=== PATIENT | female | born 1960 | race Caucasian/White ===

== ENCOUNTER 2017-05-16 10:34 | Emergency (ER) | payer OTHER ==
[2017-05-16] MEDS ORDERED: METHYLPREDNISOLONE INJ 125 MG/2 ML SDV IV ONE (10:49)
[2017-05-16] MEDS ORDERED: IPRATROPIUM/ALBUTEROL 0.5-2.5 MG/3 ML AMPUL NEB ONE (10:49)
[2017-05-16] MEDS ORDERED: OXYMETAZOLINE HCL 0.05% NASAL SPRAY 15 ML BOTTLE NASL ONE (10:52)
[2017-05-16] MEDS ORDERED: OXYMETAZOLINE HCL 0.05% NASAL SPRAY 15 ML BOTTLE ONE (10:54)
[2017-05-16] MEDS ORDERED: PROPOFOL INJ 200 MG/20 ML VIAL IV ONE ×2 (11:04→11:25)
[2017-05-16 11:05] LABS: PROTHROMBIN TIME 16.3 SEC (11.4-15.4)
[2017-05-16 11:16] LABS: VENOUS BLOOD BASE EXCESS -2.3 mmol/L; VENOUS BLOOD HCO3 28.4 mmol/L (20-32)
[2017-05-16 11:17] LABS: HEMATOCRIT 34.8 % (36.0-47.0); HEMOGLOBIN 10.6 g/dL (12.0-15.5); MEAN CORPUSCULAR HEMOGLOBIN 29.2 pg (27.0-33.4); MEAN CORPUSCULAR HGB CONC 30.4 g/dL (32.0-36.0); MEAN CORPUSCULAR VOLUME 96 fl (80-97); RED BLOOD COUNT 3.62 10^6/uL (3.72-5.28); RED CELL DISTRIBUTION WIDTH 14.8 % (11.5-14.0); WHITE BLOOD COUNT 17.1 10^3/uL (4.0-10.5)
[2017-05-16] MEDS ORDERED: NORMAL SALINE 1000 ML 1,000 ML IV ONE ×2 (11:17→11:24)
[2017-05-16 11:29] LABS: ALBUMIN 3.8 g/dL (3.5-5.0); ALKALINE PHOSPHATASE 64 U/L (38-126); BILIRUBIN,DIRECT 0.4 mg/dL (0.0-0.4); BILIRUBIN,TOTAL 1.9 mg/dL (0.2-1.3); BLOOD UREA NITROGEN 34 mg/dL (7-20); CALCIUM 8.9 mg/dL (8.4-10.2); CHLORIDE 94 mmol/L (98-107); CREATINE KINASE 129 U/L (30-135); CREATININE RESULT 2.01 mg/dL (0.52-1.25); GLUCOSE 42 mg/dL (75-110); TOTAL PROTEIN 6.4 g/dL (6.3-8.2)
[2017-05-16 11:32] LABS: NEONATAL BILIRUBIN RESULT 1.9 mg/dL (0.1-1.1)
--- NOTE | 2017-05-16 11:32 | ER Document Report ---
ED Resuscitation - General Mode of Arrival: Medic Information source: Emergency Med Personnel - HPI Witnessed arrest: Yes Bystander CPR?: Yes Onset: Just prior to arrival Symptoms prior to event: Short of breath Activity prior to event: At rest <PRIYANK COLÓN - Last Filed: 05/16/17 14:02> <JOSEE SARABIA - Last Filed: 05/16/17 15:50> - General Chief Complaint: Cardiac Arrest Stated Complaint: POST ARREST Time Seen by Provider: 05/16/17 10:47 Notes: Patient is a 57-year-old female, with history of COPD, presenting to the emergency department after being witnessed by family having cardiac arrest just prior to arrival. Per EMS, family started CPR. EMS arrived on the scene shortly after where she was found to be in asystole. EMS administered epinephrine, pulses returned, she was given a Berry airway. (PRIYANK COLÓN) This 57-year-old female patient with a known past medical history of COPD was brought in by EMS after a witnessed cardiac arrest. There is still no family here and no history other than EMS. According to the EMS history, bystander CPR was started, they arrived shortly later and found the patient in asystole. 1 mg epinephrine IV was given, and the patient had return of complexes and circulation. She was intubated with a Berry airway. On arrival her pulse ox is present. EMS reports that her initial end-tidal CO2 was near 100, and had come down in the 60s. Arrival she is unresponsive, she has some rhonchi and wheezes with bag valve ventilation through the Berry airway. She has palpable femoral pulses and radial pulses. Her toes are somewhat cyanotic and look like chronic vascular disease. Her abdomen is quite distended, tense and resonant. Attempt was made to pass NG tube unsuccessfully, oral gastric attempt was also unsuccessful probably due to the inflated balloon from the Berry airway. Anesthesia was called and came to assist in airway management. She was given propofol, succinylcholine, the Berry airway was removed, patient was suctioned and then intubated with a 7.0 endotracheal tube. After intubation, and orogastric tube was inserted and a few 100 mL's of a brownish thick liquid that was suggestive of bowel obstruction was removed. Chest x-ray showed clear lungs with an endotracheal tube about 5 cm from brant. The endotracheal tube was advanced 2 cm. kuB showed gaseous distention of the intestines, but the gas went throughout the entire bowel. This was felt to be an ileus and not an obstruction. The patient's blood pressure was initially 103, it dropped into the 70s and responded to saline boluses, eventually it drifted down requiring Levophed drip. At this time she is on Levophed drip and has received a total of 3 L of normal saline IV. Antibiotics have also been started for an elevated white blood cell count and elevated lactic acid. I called the spouse and found that he has been in the waiting room. History from him is that the patient is on 2 L oxygen around the clock, increases 4-5 L with activity. This morning she was found gasping for breath with her oxygen off. He put it back on her and she complained of sweating and her feet feeling cold. She does have a diagnosis of Raydauds. He reports she found her again with her oxygen off and put it back on and warned her if he came back home and the O2 was off again. He then left to go to a doctor's appointment. About 10 AM he got a phone call from his daughter that she woke up to find the patient blew and gasping for breath. She went across the street get her sister , when they returned the patient was not breathing and was cold. CPR was started and 911 was called. The spouse also recalled that 2 years ago the patient was on a ventilator for several days due to respiratory failure. The EMS run sheet was located and found that her blood sugar was 94 on scene. The first chemistries came back showing a blood sugar of 42. The ALT in AST were in the 4000+ range. Patient was given 1 amp of D50 W, a repeat blood sugar remained at 42, so a second amp of D50 was ordered. The patient's current medications at home according to the family are nasal oxygen, Roflumilast, Protonix, Micardis, Ambien, Zyrtec, Spiriva, and albuterol. She stopped Advair in the recent past. (JOSEE SARABIA) Past Medical History - General Information source: Relative, Emergency Med Personnel - Social History Smoking Status: Former Smoker - Quit 2007 Lives with: Spouse/Significant other Family History: Reviewed & Not Pertinent Pulmonary Medical History: Reports: Hx Asthma, Hx COPD Past Surgical History: Reports: Hx Hysterectomy <PRIYANK COLÓN - Last Filed: 05/16/17 14:02> <JOSEE SARABIA - Last Filed: 05/16/17 15:50> - Medical History Notes: Hx Raybasiliouds (PRIYANK COLÓN) Review of Systems - Review of Systems -: Yes ROS unobtainable due to patient's medical condition - Patient unresponsive <PRIYANK COLÓN - Last Filed: 05/16/17 14:02> Physical Exam - General General appearance: Unresponsive - HEENT Head: Normocephalic, Atraumatic Eyes: Normal Pupils: PERRL - 2-3mm bilaterally, slightly reactive - Respiratory Respiratory status: Other - Arrived with Berry airway bag valve Breath sounds: Rhonchi - Left, Wheezing - Left - Cardiovascular Rhythm: Regular Heart sounds: Normal auscultation Murmur: No - Abdominal Distension: Distended - Resonant and tense - Back Back: Normal - Extremities General upper extremity: Normal inspection Foot: Other - See skin exam - Skin Skin Temperature: Cool Skin Moisture: Dry Skin Color: Other - blue bilateral lower extremities, positive capillary refill <PRIYANK COLÓN - Last Filed: 05/16/17 14:02> Course - Laboratory Result Diagrams: 05/16/17 10:43 05/16/17 10:43 <PRIYANK COLÓN - Last Filed: 05/16/17 14:02> - Laboratory Result Diagrams: 05/16/17 14:15 05/16/17 14:15 - Diagnostic Test Radiology reviewed: Image reviewed, Reports reviewed - Chest x-ray shows good aeration with endotracheal tube about 5 cm above the brant. kuB shows diffuse gas throughout the intestines. - EKG Interpretation by [facility] EKG shows normal: Sinus rhythm, [place], QRS Complexes, ST-T Waves. abnormal: Intervals - Prolonged QT interval Rate: Normal - 75 Rhythm: NSR When compared to previous EKG there are: Previous EKG unavailable - Consults Dr. Russ Time consulted: 13:40 Consulted provider: other - Will accept at [facility]. <JOSEE SARABIA - Last Filed: 05/16/17 15:50> - Re-evaluation Re-evalutation: 05/16/17 14:45 PROCEEDURE: Patient had had some nose bleeding off and on since the attempt to pass the nasogastric tubes was done. It was initially easily controlled with Afrin nose spray and pinching the nostrils. At this time the bleeding has started back up, so I placed Afrin- soaked cotton balls into each nostril to control the bleeding. 05/16/17 15:48 [facility] air transport is here at this time to take the patient. She was given 1 amp of calcium gluconate, 4 units of regular insulin IV, and 1/2 amp of sodium bicarb IV. (JOSEE SARABIA) - Vital Signs Vital signs: Temp Pulse Resp BP Pulse Ox 94.9 F L 12 97/51 L 100 05/16/17 14:31 05/16/17 14:31 05/16/17 14:31 05/16/17 14:31 - Laboratory Laboratory results interpreted by me: 05/16/17 05/16/17 05/16/17 10:43 10:43 10:43 WBC 17.1 H RBC 3.62 L Hgb 10.6 L Hct 34.8 L MCV MCHC 30.4 L RDW 14.8 H Plt Count Seg Neutrophils % Band Neutrophils % 18 H Lymphocytes % Lymphocytes % (Manual) 6 L Monocytes % Absolute Neutrophils Abs Neuts (Manual) 14.9 H PT 16.3 H Carbonic Acid ABG pH ABG pCO2 ABG pO2 ABG O2 Saturation VBG pH VBG pCO2 Sodium Potassium 6.9 H* Chloride 94 L Carbon Dioxide BUN 34 H Creatinine 2.01 H Est GFR ( Amer) 31 L Est GFR (Non-Af Amer) 25 L Glucose 42 L POC Glucose Lactic Acid Calcium Total Bilirubin 1.9 H Direct Bilirubin Indirect Bilirubin 1.5 H Neonat Total Bilirubin 1.9 H AST 4318 H ALT 4158 H CK-MB (CK-2) Total Protein Albumin Urine Protein Urine Nitrite Urine Urobilinogen Urine Ascorbic Acid 05/16/17 05/16/17 05/16/17 10:43 10:43 10:43 WBC RBC Hgb Hct MCV MCHC RDW Plt Count Seg Neutrophils % Band Neutrophils % Lymphocytes % Lymphocytes % (Manual) Monocytes % Absolute Neutrophils Abs Neuts (Manual) PT Carbonic Acid ABG pH ABG pCO2 ABG pO2 ABG O2 Saturation VBG pH 7.14 L* VBG pCO2 84.7 H* Sodium Potassium Chloride Carbon Dioxide BUN Creatinine Est GFR ( Amer) Est GFR (Non-Af Amer) Glucose POC Glucose Lactic Acid 9.7 H Calcium Total Bilirubin Direct Bilirubin Indirect Bilirubin Neonat Total Bilirubin AST ALT CK-MB (CK-2) 5.10 H Total Protein Albumin Urine Protein Urine Nitrite Urine Urobilinogen Urine Ascorbic Acid 05/16/17 05/16/17 05/16/17 11:30 11:40 13:02 WBC RBC Hgb Hct MCV MCHC RDW Plt Count Seg Neutrophils % Band Neutrophils % Lymphocytes % Lymphocytes % (Manual) Monocytes % Absolute Neutrophils Abs Neuts (Manual) PT Carbonic Acid 2.37 H ABG pH 7.06 L* ABG pCO2 78.6 H* ABG pO2 32.8 L* ABG O2 Saturation 40.5 L VBG pH VBG pCO2 Sodium Potassium Chloride Carbon Dioxide BUN Creatinine Est GFR ( Amer) Est GFR (Non-Af Amer) Glucose POC Glucose 50 L Lactic Acid Calcium Total Bilirubin Direct Bilirubin Indirect Bilirubin Neonat Total Bilirubin AST ALT CK-MB (CK-2) Total Protein Albumin Urine Protein 30 H Urine Nitrite POSITIVE H Urine Urobilinogen 4.0 H Urine Ascorbic Acid 40 H 05/16/17 05/16/17 05/16/17 13:34 14:15 14:15 WBC RBC Hgb Hct MCV MCHC RDW Plt Count Seg Neutrophils % Band Neutrophils % Lymphocytes % Lymphocytes % (Manual) Monocytes % Absolute Neutrophils Abs Neuts (Manual) PT Carbonic Acid ABG pH ABG pCO2 ABG pO2 ABG O2 Saturation VBG pH VBG pCO2 Sodium 134.6 L Potassium 6.5 H* Chloride Carbon Dioxide 20 L BUN 31 H Creatinine 1.72 H Est GFR ( Amer) 37 L Est GFR (Non-Af Amer) 30 L Glucose 492 H* POC Glucose 245 H Lactic Acid 7.0 H Calcium 6.0 L* Total Bilirubin 1.8 H Direct Bilirubin 0.9 H Indirect Bilirubin Neonat Total Bilirubin 1.6 H AST 7121 H ALT 6887 H CK-MB (CK-2) Total Protein 4.7 L Albumin 2.6 L Urine Protein Urine Nitrite Urine Urobilinogen Urine Ascorbic Acid 05/16/17 14:15 WBC 11.7 H RBC 3.06 L Hgb 9.1 L Hct 30.4 L MCV 99 H MCHC 30.0 L RDW 15.1 H Plt Count 143 L Seg Neutrophils % 89.1 H Band Neutrophils % Lymphocytes % 7.9 L Lymphocytes % (Manual) Monocytes % 2.5 L Absolute Neutrophils 10.4 H Abs Neuts (Manual) PT Carbonic Acid ABG pH ABG pCO2 ABG pO2 ABG O2 Saturation VBG pH VBG pCO2 Sodium Potassium Chloride Carbon Dioxide BUN Creatinine Est GFR ( Amer) Est GFR (Non-Af Amer) Glucose POC Glucose Lactic Acid Calcium Total Bilirubin Direct Bilirubin Indirect Bilirubin Neonat Total Bilirubin AST ALT CK-MB (CK-2) Total Protein Albumin Urine Protein Urine Nitrite Urine Urobilinogen Urine Ascorbic Acid Procedures - Intubation Orotracheal Time of Intubation: 11:30 - Performed by DIRECTOR RADIO NEWS Airway evaluation: Normal anatomy Medications: Other - Propofol Intubation method: Orotracheal ETT size: 7.0 End tidal CO2 confirmed: Yes Intubation Complications: Nosebleed <PRIYANK COLÓN - Last Filed: 05/16/17 14:02> Critical Care Note - Critical Care Note Total time excluding time spent on procedures (mins): 85 <JOSEE SARABIA - Last Filed: 05/16/17 15:50> Discharge <PRIYANK COLÓN - Last Filed: 05/16/17 14:02> <JOSEE SARABIA - Last Filed: 05/16/17 15:50> - Discharge Clinical Impression: Cardiopulmonary arrest with successful resuscitation, Lactic acidosis, Hypoglycemia, Elevated alanine aminotransferase (ALT) level, Elevated AST (SGOT) , Airway intubation performed without difficulty, Ileus, unspecified COPD (chronic obstructive pulmonary disease) Qualifiers: COPD type: unspecified COPD Qualified Code(s): J44.9 - Chronic obstructive pulmonary disease, unspecified Hypotension Qualifiers: Hypotension type: unspecified hypotension type Qualified Code(s): I95.9 - Hypotension, unspecified Condition: Serious Disposition: [facility] Referrals: JACLYN TORIBIO MD [Primary Care Provider] - Follow up as needed Scribe Attestation: 05/16/17 14:00 I personally performed the services described in the documentation, reviewed and edited the documentation which was dictated to the scribe in my presence, and it accurately records my words and actions. (JOSEE SARABIA)
[2017-05-16] MEDS ORDERED: NOREPINEPHRINE BITARTRATE INJ/PF 4 MG/4 ML SDV IV ONE (11:33)
[2017-05-16] MEDS ORDERED: DEXTROSE 5%-WATER 250 ML with NOREPINEPHRINE BITARTRATE 4 MG IV PRN ×2 (11:33)
[2017-05-16] MEDS ORDERED: ERTAPENEM SODIUM INJ 1 GM VIAL IV ONE (11:33)
[2017-05-16 11:37] LABS: CREATINE KINASE MB 5.1 ng/mL (<4.55)
[2017-05-16 11:39] LABS: ANION GAP 19 (5-19); CARBON DIOXIDE 28 mmol/L (22-30); SODIUM 140.6 mmol/L (137-145)
[2017-05-16 11:40] LABS: VENOUS BLOOD PCO2 84.7 mmHg (35-63); VENOUS BLOOD PH 7.14 (7.30-7.42)
[2017-05-16 11:41] LABS: POTASSIUM 6.9 mmol/L (3.6-5.0); TROPONIN I 0.429 ng/mL
[2017-05-16 11:48] LABS: ASPARTATE AMINO TRANSFERASE 4318 U/L (14-36)
[2017-05-16] MEDS ORDERED: MIDAZOLAM 2 MG/2 ML INJ IV ONE (11:50)
[2017-05-16] MEDS ORDERED: MORPHINE SULFATE 10 MG/ML INJ IV ONE (11:50)
[2017-05-16 11:53] LABS: APPEARANCE,URINE CLEAR; BILIRUBIN,URINE NEGATIVE (NEGATIVE); GLUCOSE, URINE NEGATIVE (NEGATIVE); KETONES,URINE NEGATIVE (NEGATIVE); LEUKOCYTE ESTERASE,URINE NEGATIVE (NEGATIVE); NITRITE,URINE POSITIVE (NEGATIVE); PROTEIN,URINE 30 mg/dL (NEGATIVE); URINE SPECIFIC GRAVITY 1.013
[2017-05-16 11:53] LABS: ALANINE AMINOTRANSFERASE 4158 U/L (9-52)
[2017-05-16] MEDS ORDERED: MIDAZOLAM 2 MG/2 ML INJ ONE (11:53)
[2017-05-16 11:57] LABS: BASOPHILS % (MANUAL) 0 % (0-2); EOSINOPHILS % (MANUAL) 2 % (0-6); LYMPHOCYTES % (MANUAL) 6 % (13-45); TOTAL CELLS COUNTED 100
[2017-05-16 11:59] LABS: ANISOCYTOSIS SLIGHT; TOXIC GRANULATION 1+
[2017-05-16 12:04] LABS: BAND NEUTROPHILS % (MANUAL) 18 % (3-5)
--- NOTE | 2017-05-16 12:09 | RADIOLOGY REPORT (SQ) ---
EXAM DESCRIPTION: CHEST SINGLE VIEW COMPLETED DATE/TIME: 05/16/2017 11:32 am REASON FOR STUDY: t2, post arrest COMPARISON: None. EXAM PARAMETERS: NUMBER OF VIEWS: One view. TECHNIQUE: Single frontal radiographic view of the chest acquired. RADIATION DOSE: NA LIMITATIONS: None. FINDINGS: LUNGS AND PLEURA: No opacities, masses or pneumothorax. No pleural effusion. MEDIASTINUM AND HILAR STRUCTURES: No masses. Contour normal. HEART AND VASCULAR STRUCTURES: Heart normal in size. Normal vasculature. BONES: No acute findings. HARDWARE: An endotracheal tube is present. The tip is not well seen. An NG tube extends to the stom ach. OTHER: No other significant finding. IMPRESSION: No acute cardiopulmonary disease. TECHNICAL DOCUMENTATION: JOB ID: [id number]
[2017-05-16] MEDS ORDERED: DEXTROSE 50%-WATER 25 GM/50 ML DISP.SYRIN IV ONE ×4 (12:12→13:03)
--- NOTE | 2017-05-16 12:17 | RADIOLOGY REPORT (SQ) ---
EXAM DESCRIPTION: KUB/ABDOMEN (SINGLE VIEW) COMPLETED DATE/TIME: 05/16/2017 11:32 am REASON FOR STUDY: sbo? COMPARISON: None. NUMBER OF VIEWS: One view. TECHNIQUE: Supine radiographic image of the abdomen acquired. LIMITATIONS: None. FINDINGS: BOWEL GAS PATTERN: There is a large amount of bowel gas in both large and small bowel loop s. There are no significantly distended loops of bowel to suggest bowel obstruction. CALCIFICATIONS: No suspicious calcifications. SOFT TISSUES: No gross mass or suggestion of organomegaly. HARDWARE: None in the abdomen. BONES: No acute fracture. No worrisome bone lesions. OTHER: No other significant finding. IMPRESSION: There is a large amount of bowel gas as described. Ileus is more likely than bowel obst ruction. TECHNICAL DOCUMENTATION: JOB ID: [id number] [employer]- All Rights Reserved
[2017-05-16] MEDS ORDERED: DEXTROSE 5%-NORMAL SALINE 1,000 ML IV ONE (13:04)
[2017-05-16 14:23] LABS: ABSOLUTE LYMPHOCYTES (AUTO) 0.9 10^3/uL (0.5-4.7); ABSOLUTE MONOCYTES (AUTO) 0.3 10^3/uL (0.1-1.4); ABSOLUTE NEUT (AUTO) 10.4 10^3/uL (1.7-8.2); BASOPHILS % (AUTO) 0.3 % (0-2); EOSINOPHILS % (AUTO) 0.2 % (0-6); HEMATOCRIT 30.4 % (36.0-47.0); HEMOGLOBIN 9.1 g/dL (12.0-15.5); HGB HCT DIFFERENCE -3.1; LYMPHOCYTES % (AUTO) 7.9 % (13-45); MEAN CORPUSCULAR HEMOGLOBIN 29.8 pg (27.0-33.4); MEAN CORPUSCULAR VOLUME 99 fl (80-97); MONOCYTES % (AUTO) 2.5 % (3-13); RED BLOOD COUNT 3.06 10^6/uL (3.72-5.28); RED CELL DISTRIBUTION WIDTH 15.1 % (11.5-14.0); SEGMENTED NEUTROPHILS % (AUTO) 89.1 % (42-78); WHITE BLOOD COUNT 11.7 10^3/uL (4.0-10.5)
[2017-05-16 14:41] LABS: ALBUMIN 2.6 g/dL (3.5-5.0); ALKALINE PHOSPHATASE 50 U/L (38-126); ANION GAP 14 (5-19); BILIRUBIN,DIRECT 0.9 mg/dL (0.0-0.4); BILIRUBIN,TOTAL 1.8 mg/dL (0.2-1.3); BLOOD UREA NITROGEN 31 mg/dL (7-20); CARBON DIOXIDE 20 mmol/L (22-30); CHLORIDE 101 mmol/L (98-107); CREATININE RESULT 1.72 mg/dL (0.52-1.25); SODIUM 134.6 mmol/L (137-145); TOTAL PROTEIN 4.7 g/dL (6.3-8.2)
[2017-05-16 14:43] LABS: NEONATAL BILIRUBIN RESULT 1.6 mg/dL (0.1-1.1)
[2017-05-16 14:58] LABS: ARTERIAL BLOOD BASE EXCESS -8.9 mmol/L; ARTERIAL BLOOD O2 SATURATION 40.5 % (94-98)
[2017-05-16 15:03] LABS: GLUCOSE 492 mg/dL (75-110); POTASSIUM 6.5 mmol/L (3.6-5.0)
[2017-05-16 15:05] LABS: ALANINE AMINOTRANSFERASE 6887 U/L (9-52); ASPARTATE AMINO TRANSFERASE 7121 U/L (14-36)
[2017-05-16] MEDS ORDERED: CALCIUM GLUCONATE 1000 MG/10 ML INJ IV ONE (15:15)
[2017-05-16] MEDS ORDERED: INSULIN REG, HUMAN 100 UNIT/ML 3 ML VIAL (PYX) IV ONE (15:15)
[2017-05-16] MEDS ORDERED: SODIUM BICARBONATE 8.4% INJ 50 MEQ/50 ML DISP.SYRIN IV ONE (15:16)
[2017-05-16] MEDS ORDERED: ALBUTEROL SULFATE 0.083% NEB 2.5 MG/3 ML AMPUL NEB ONE (15:16)
[2017-05-16 16:19] VITALS: BP 107/58
--- NOTE | 2017-05-16 22:29 | EKG REPORT ---
SEVERITY:- ABNORMAL ECG - SINUS RHYTHM PROLONGED QT INTERVAL : Confirmed by: Estefania Baig 16-May-2017 22:28:57
[2017-05-17 16:05] LABS: PATH REVIEW PATHOLOGIST REVIEWED
== END 2017-05-16 16:00 | disposition short-term general hospital (02) ==
LOC: ER 10:34
PROC: 0BH17EZ Insertion of Endotracheal Airway into Trachea, Via Natural or Artificial Opening (ICD-10-PCS; principal; 2017-05-16)
PROC: 2Y41X5Z Packing of Nasal Region using Packing Material (ICD-10-PCS; 2017-05-16)
DX: I46.9 Cardiac arrest, cause unspecified (principal); J44.9 Chronic obstructive pulmonary disease, unspecified; Z99.81 Dependence on supplemental oxygen; K56.7 Ileus, unspecified; D72.829 Elevated white blood cell count, unspecified; E87.2 Acidosis; E16.2 Hypoglycemia, unspecified; R74.0 Nonspecific elevation of levels of transaminase and lactic acid dehydrogenase [LDH]; I73.00 Raynaud's syndrome without gangrene; R04.0 Epistaxis; Z79.899 Other long term (current) drug therapy; Z87.891 Personal history of nicotine dependence
CPT/HCPCS: 93005; 96376; 94640 ×2; 99291; 99292; 96361; 51702; 96375; 96365; 96366; 96368; 36415; 87040; 87086; 82553; 82962; 82803 ×2; 82550; 85025; 85610; 80053; 81001; 84484; 83605; 71010; 74000; 93010; 36600; 31500; 30901; J2250; J0610; J3490 ×3; J1335; J2930; J2270; J1815; J7060; J7030; J2704; J7620; 94002